=== PATIENT | female | born 1985 | race Caucasian/White ===

== ENCOUNTER 2022-01-14 16:15 | Inpatient (IN) | payer OTHER, SELFPAY ==
[2022-01-14] VITALS (16 sets, daily range): BP systolic 133–157; BP diastolic 67–83; PULSE 88–131; BMI 33.7
--- NOTE | 2022-01-14 16:40 | PC.NURSE ---
Patients BS on her continuous monitor is 149
--- NOTE | 2022-01-14 17:01 | PC.NURSE ---
Jazzmine Salinas gave report to Dr. Ramirez. Orders received for 10 mg PO procardia, increased PO fluids, a dose of celestone and come back in 24 hours for a second dose, and following orders with Dr. Fox.
[2022-01-14] MEDS: BETAMETHASONE SOD PHOS/ACETATE 30 MG/5 ML VIAL 12 MG IM (17:19)
[2022-01-14] MEDS: NIFEdipine 10 MG CAPSULE PO (17:19)
[2022-01-14 17:25] LABS: Appearance Urine Clear (Clear); Bilirubin Urine 1+ (Negative); Blood Urine Negative (Negative); Color Urine Yellow (Yellow); Glucose Urine UA 1+ mg/dL (Negative); Ketones Urine 4+ mg/dL (Negative); Leukocyte Esterase Ur Negative LEU/UL (Negative); Nitrate Urine Negative (Negative); Protein Urine Negative (Negative); Specific Grav Ur >= 1.030 (1.001-1.035); pH Urine 5.5 (5.0-9.0)
[2022-01-14 17:30] LABS: Add Urine Microscopic? YES; Bacteria Urine Trace /hpf; Mucus Urine Moderate /lpf; RBC Urine 0-2 /hpf (0-2); Squamous Epithelial Cell Urine Rare /hpf (Few)
--- NOTE | 2022-01-14 18:07 | PC.NURSE ---
Called Dr. Fox. Orders received of 2L LR bolus, up to 2 doses of terbulatine, cbc, cmp, protein creatine ration, check blood sugars.
[2022-01-14] MEDS: TERBUTALINE SULFATE 1 MG/ML VIAL 0.25 MG SUB-Q (18:32)
--- NOTE | 2022-01-14 18:39 | OBADM ---
This patient, Mari De Leon, admitted to the OB room OB Post 115 for observation. Patient/family oriented to hospital policies and general routines including ID bracelet, bed and alarms, visiting hours, pain management, procedures, bathroom and other care routines, personal items, smoking policy, room service/diet, and visiting hours. Patient/Family are encouraged to report perceived risks to care and to ask questions if they do not understand what they are told or what they should do.
[2022-01-14 18:48] LABS: Creatinine Urine 179.3 mg/dL
[2022-01-14] MEDS: LACTATED RINGERS 1,000 ML 999 ML IV CONT ×2 (19:00→20:13)
[2022-01-14 19:03] LABS: Basophils Percent Auto 0.3 % (0.2-1.2); Eosinophils Absolute Auto 0.2 K/mm3 (0-0.3); Hematocrit 38.9 % (37.0-47.0); Hemoglobin 12.7 g/dL (12.0-15.0); Immature Granulocyte Absolute 0.09 K/mm3 (0.00-0.031); Immature Granulocyte Percent A 0.6 % (0-0.5); Lymphocytes Absolute Auto 3.17 K/mm3 (0.9-3.2); Lymphocytes Percent Auto 20.4 % (18.3-44.2); Mean Corpuscular HGB Conc 32.6 g/dl (32-36); Mean Corpuscular Volume 85.7 fl (80-100); Mean Platelet Volume 10.8 fl (7.4-10.4); Monocytes Absolute Auto 0.6 K/mm3 (0.1-0.6); Monocytes Percent Auto 4.1 % (2.6-8.5); Neutrophils Absolute Auto 11.4 K/mm3 (1.3-6.7); Neutrophils Percent Auto 73.6 % (45.5-73.1); Platelet Count Result 252 k/mm3 (150-375); Red Blood Count 4.54 M/mm3 (4.2-5.4); Red Cell Distribution Width 13.8 % (11.5-14.5); White Blood Count 15.5 K/mm3 (4.5-10.0)
--- NOTE | 2022-01-14 19:08 | PC.NURSE ---
report given to WOOD Marin. Dr. Fox at bedside.
[2022-01-14 19:14] LABS: Alanine Aminotransferase 13 U/L (6-35); Albumin Level 3.3 g/dL (3.5-5.1); Alkaline Phosphatase 141 U/L (38-126); Anion Gap 10 mmol/L (8-16); Aspartate Amino Transferase 20 U/L (14-36); Bilirubin,Total 0.6 mg/dL (0.2-1.3); Blood Urea Nitrogen 6 mg/dL (7-17); Calcium 8.9 mg/dL (8.4-10.2); Carbon Dioxide 21 mmol/L (22-30); Chloride 103 mmol/L (98-107); Estimated CRCL calculation 143 ml/min; Estimated Glomerular Filt Rate > 60; Glucose 156 mg/dL (65-110); Potassium 3.6 mmol/L (3.4-5.0); Sodium 134 mmol/L (137-145); Uric Acid 3.8 mg/dL (2.5-7.5)
[2022-01-14 19:24] LABS: Total Protein Urine Random < 5 mg/dL; Ur Ttl Prot Creatinine Ratio < 0.03 mg/mg (0-0.20)
[2022-01-14 19:58] LABS: Fetal Fibronectin Negative
[2022-01-14] MEDS: NIFEdipine 30 MG TAB.ER.24 PO (21:25)
[2022-01-15 04:54] VITALS: BP 133/65; PULSE 79
--- NOTE | 2022-01-15 07:01 | PC.NURSE ---
Dr. Fox in department, notified of pt stating she feels like the contractions are getting closer together and stronger and just voided and would reevaluate contractions soon. Dr. Fox plans to discharge pt home but wants to discuss with Dr. Ramirez before making a final decision.
[2022-01-15] MEDS: NIFEdipine 30 MG TAB.ER.24 PO (07:12)
--- NOTE | 2022-01-15 07:19 | PC.NURSE ---
Dr. Ramirez at bedside discussing plan of care with pt. Plans to monitor pt for a few more hours and if contractions do not increase in intensity and frequency, plans to discharge home after second dose of Betamethasone, which Dr. Ramirez is ok with giving before the 24 hours.
[2022-01-15 07:22] VITALS: BP 140/72; PULSE 87
[2022-01-15 08:29] LABS: Hemoglobin A1C 6.6 % (<5.7)
[2022-01-15 09:08] LABS: HIV 1/2 Ab P24 Ag Result Negative (Negative)
[2022-01-15] MEDS: RHO(D) IMMUNE GLOBULIN 300 MCG/2 ML SYRINGE IM (09:30)
--- NOTE | 2022-01-15 11:13 | PC.NURSE ---
Dr. Ramirez notified of pt's increase in contraction frequency and intensity. New orders received to give 10mg of Procardia PO now and repeat in 4-6 hours if needed.
[2022-01-15] MEDS: NIFEdipine 10 MG CAPSULE PO ×2 (11:17→15:53)
[2022-01-15 11:19] VITALS: BP 132/64; PULSE 93
--- NOTE | 2022-01-15 13:45 | PC.NURSE ---
1337-Dr. Ramirez phoned in for update. Update given on contraction intensity and frequency. Dr. Ramirez is giving the pt 3 options to choose from: continue on the Procardia 10mg PO Q4-6H, start Magnesium sulfate or be transferred to another facility. [id number]-RN notified pt of the [address] Ramirez. Pt will discuss with spouse and let RN know what she decides.
--- NOTE | 2022-01-15 14:41 | PC.NURSE ---
Pt and spouse decided they wanted to start the Magnesium Sulfate and then if that doesn't seem to help, she would want to be transferred to another facility. Dr. Ramirez notified of pt's decision and new orders received to start 4gm bolus of Magnesium sulfate with a 2gm maintenance dose. Dr. Melara, the [facility] physician extender, in pt's room discussing risks and benefits with pt.
--- NOTE | 2022-01-15 15:08 | PC.NURSE ---
Pt states she changed her mind and wants to be transferred to another facility. Dr. Ramirez notified and states he will call [facility] to initiate the transfer and then call RN back with further instructions.
[2022-01-15 15:32] VITALS: BP 133/65; PULSE 85
--- NOTE | 2022-01-15 15:43 | PC.NURSE ---
Addendum entered by Tasha Garcia RN 01/15/22 16:37: Dr. Ramirez states to wait with starting the Magnesium Sulfate and give the Procardia 10mg when due. Original Note: Dr. Ramirez called and stated [facility] will be calling to get report and then coming to [facility] the pt to transfer to their facility.
--- NOTE | 2022-01-15 16:16 | PM.IMHP ---
H&P: HPI History of Present Illness Date/Time: 01/15/22 16:16 Chief Complaint: contractions Narrative: Mari is a 36yo @ 30.6wks who presented to L&D 01/14/22 with complaints of contractions. She did report poor control of BG yesterday (above 200) and she was found to be dehyrdated w/ 4+ ketones. She reports good movement. No VB or LOF. She reports the contractions come and go; not improving but not significantly worsening. She has been taking procardia and was given a dose of terb (did not like the side effects of terb). She had complications with magnesium with a prior delivery and does not desire that. She has been co-managed by [facility] @ [facility] (works as ER nurse at [employer]). She would like to be transferred to [facility] in the event of continued contractions and PTD. She has been given ANCS x2. Her is complicated by: - Previous c/s x2 - H/o PTD w/ h/o cerclage and cerclage currently in place; also on progesterone - T1DM on insulin pump; not fully controlled - EFW >99%ile with polyhydramnios, SALLY 29cm - Newly diagnosed GHTN; PEC w/u negative on this admission Review of Systems Review of Systems: All systems reviewed & are unremarkable except as noted in HPI and below PMFSH Past Medical History Medical History Abnormal Pap smear of cervix 2008 - HPV Anxiety BRCA gene mutation positive in female Cervical cerclage suture present (09/24/21) done at [facility] Depression Diabetes type 1, controlled insulin pump Nexplanon insertion (08/11/17) Nexplanon removal (08/23/19) Pneumonia Surgical History Surgical History H/O LEEP (~2008) cervical dysplasia History of appendectomy (~1997) History of 12/06/12 primary c/s--premature, pt developed pneumonia cx cerclage @ 16 weeks 06/11/15 rpt c/s--cx cerclage @ 14 weeks History of cervical cerclage 2012 @16 weeks 01/03/15 [place] cerclage @ 14 weeks for cervical incompetence, removal on 06/11/15 History of mastectomy (09/29/17) elective double mastectomy, patient has BRCA gene Hx of breast implants, bilateral (06/17/18) due to double mastectomy Family History Family History Other Diabetes mellitus maternal uncle Breast cancer maternal uncle Mother Breast cancer Grandparent Malignant tumor of ovary maternal grandmother Father Malignant tumor of urinary bladder Social History Social History Smoking status: Never smoker Alcohol intake: never Substance use: never Substance use type: does not use Additional living arrangements comments: Additional occupation/education comments: Nurse Gender identity (if verbalized by the patient): Female Sexual Orientation (if Verbalized by the Patient): Straight or Heterosexual Meds Home Medications and Allergies Home Medications Medication Instructions Recorded Confirmed Type aspirin 81 mg tablet,delayed 81 mg PO DAILY 09/25/21 01/14/22 History release insulin aspart U-100 100 unit/mL 1 sliding scale dose subcut 09/25/21 01/14/22 History subcutaneous solution (Novolog USEASDIRECTD U-100 Insulin aspart) vitamins-iron fumarate 65 1 tablet PO DAILY 09/25/21 01/14/22 History mg iron-folic acid 1 mg tablet escitalopram oxalate 20 mg tablet 20 mg PO DAILY 11/24/21 01/14/22 History (Lexapro) nifedipine 30 mg tablet,extended 30 mg PO DAILY #30 tabs 01/12/22 01/14/22 Rx release 24 hr (Procardia XL) progesterone micronized 200 mg 200 mg PO QHS 30 days #30 caps 01/12/22 01/14/22 Rx capsule (Prometrium) zolpidem 12.5 mg tablet,extended 12.5 mg PO QHS #30 tabs 01/12/22 01/14/22 Rx release,multiphase (Ambien CR) Allergies Allergy/AdvReac Type Severity Reaction Status Date / Time cefaclor Allergy Unknown Hive
--- NOTE | 2022-01-15 16:26 | WPDHPUPDATE1 ---
History and Physical Update Update Date/Time: 01/15/22 16:26 History and Physical has been reviewed, including an updated exam of the patient. There are NO changes in the patient's condition. Risks, benefits, and alternatives have been discussed and questions answered. Patient agrees to proceed with procedure.
[2022-01-15] MEDS: BETAMETHASONE SOD PHOS/ACETATE 30 MG/5 ML VIAL 12 MG IM (17:07)
--- NOTE | 2022-01-15 17:29 | PC.NURSE ---
[facility] unit.
--- NOTE | 2022-01-20 09:57 | PM.OBTRLD ---
OB - Triage/Final Diagnosis Visit Information Reason for evaluation: other ( labor) Comments/Additional reasons for admission: I have assessed the risk for this patient, Mari De Leon, and determined that she would benefit from observation care. Evaluation Laboratory results: Laboratory Tests 01/14/22 01/14/22 01/14/22 17:08 17:14 18:53 WBC 15.5 H RBC 4.54 Hgb 12.7 Hct 38.9 MCV 85.7 MCH 28.0 MCHC 32.6 RDW 13.8 Plt Count 252 MPV 10.8 H Immature Gran % (Auto) 0.6 H Neut % (Auto) 73.6 H Lymph % (Auto) 20.4 [place] % (Auto) 4.1 Eos % (Auto) 1.0 Baso % (Auto) 0.3 Lymph # (Auto) 3.17 [place] # (Auto) 0.6 Eos # (Auto) 0.2 Baso # (Auto) 0.0 Abs Immat Gran (auto) 0.09 H Absolute Neuts (auto) 11.4 H Absolute Nucleated RBC 0.0 Nucleated RBC % 0.0 Sodium Potassium Chloride Carbon Dioxide Anion Gap BUN Creatinine Estim Creat Clear Calc Estimated GFR Glucose Hemoglobin A1c Uric Acid Calcium Total Bilirubin AST ALT Alkaline Phosphatase Total Protein Albumin Urine Color Yellow Urine Appearance Clear Urine pH 5.5 Ur Specific [place] >= 1.030 Urine Protein Negative Urine Glucose (UA) 1+ H Urine Ketones 4+ H Ur Blood (Man) Negative Urine Nitrate Negative Urine Bilirubin 1+ H Urine Urobilinogen 2.0 H Leukocyte Esterase Rfl Negative Urine RBC 0-2 Urine WBC 4-6 H Ur Squamous Epith Cells Rare Urine Bacteria Trace Urine Mucus Moderate H U Random Total Protein < 5 Urine Creatinine 179.3 Protein/Creat Ratio 2 < 0.03 HIV 1&2 Ab/P24 Ag 4thGn Fibronectin Blood Type Antibody Screen Screen Baby's Blood Type Baby's JAROD Doses of RhIg Required 01/14/22 01/14/22 01/15/22 18:53 19:15 08:02 WBC RBC Hgb Hct MCV MCH MCHC RDW Plt Count MPV Immature Gran % (Auto) Neut % (Auto) Lymph % (Auto) [place] % (Auto) Eos % (Auto) Baso % (Auto) Lymph # (Auto) [place] # (Auto) Eos # (Auto) Baso # (Auto) Abs Immat Gran (auto) Absolute Neuts (auto) Absolute Nucleated RBC Nucleated RBC % Sodium 134 L Potassium 3.6 Chloride 103 Carbon Dioxide 21 L Anion Gap 10 BUN 6 L Creatinine 0.50 L Estim Creat Clear Calc 143 Estimated GFR > 60 Glucose 156 H Hemoglobin A1c 6.6 H Uric Acid 3.8 Calcium 8.9 Total Bilirubin 0.6 AST 20 ALT 13 Alkaline Phosphatase 141 H Total Protein 7.0 Albumin 3.3 L Urine Color Urine Appearance Urine pH Ur Specific [place] Urine Protein Urine Glucose (UA) Urine Ketones Ur Blood (Man) Urine Nitrate Urine Bilirubin Urine Urobilinogen Leukocyte Esterase Rfl Urine RBC Urine WBC Ur Squamous Epith Cells Urine Bacteria Urine Mucus U Random Total Protein Urine Creatinine Protein/Creat Ratio 2 HIV 1&2 Ab/P24 Ag 4thGn Fibronectin Negative Blood Type Antibody Screen Screen Baby's Blood Type Baby's JAROD Doses of RhIg Required 01/15/22 01/15/22 08:02 08:02 WBC RBC Hgb Hct MCV MCH MCHC RDW Plt Count MPV Immature Gran % (Auto) Neut % (Auto) Lymph % (Auto) [place] % (Auto) Eos % (Auto) Baso % (Auto) Lymph # (Auto) [place] # (Auto) Eos # (Auto) Baso # (Auto) Abs Immat Gran (auto) Absolute Neuts (auto) Absolute Nucleated RBC Nucleated RBC % Sodium Potassium Chloride Carbon Dioxide Anion Gap BUN Creatinine Estim Creat Clear Calc Estimated GFR Glucose Hemoglobin A1c Uric Acid Calcium Total Bilirubin AST ALT Alkaline Phosphatase Total Protein Albumin Urine Color Urine Appearance Urine pH Ur Specific [place] Urine Protein Urine Glucose (
== END 2022-01-15 17:55 | disposition short-term general hospital (02) | DRG 832 ==
LOC: ANHLDR 16:21 → ANHOBPP 16:24
PROVIDERS: Obstetrics & Gynecology; Admitting Provider Obstetrics & Gynecology; Visit Provider Obstetrics & Gynecology
DX: O24.013 Pre-existing type 1 diabetes mellitus, in pregnancy, third trimester (principal); O47.03 False labor before 37 completed weeks of gestation, third trimester; Z3A.30 30 weeks gestation of pregnancy; E86.0 Dehydration; Z79.4 Long term (current) use of insulin; O13.3 Gestational [pregnancy-induced] hypertension without significant proteinuria, third trimester; O40.3XX0 Polyhydramnios, third trimester, not applicable or unspecified; O99.343 Other mental disorders complicating pregnancy, third trimester; F41.9 Anxiety disorder, unspecified; F32.A Depression, unspecified
CPT/HCPCS: 36415; 80053; 81001; 82570; 82731; 83036; 84156; 84550; 85025; 85461; 86703; 90384; 96360; 96361; 96372; A9270; G0378; G0379; G0432; J0702; J2790; J3105; J7120

== ENCOUNTER 2024-08-01 09:36 | Outpatient (CLI) | payer OTHER, SELFPAY ==
--- NOTE | ~2024-08-01 | MR_ITS ---
MR breast BI wo/w con 08/01/2024 13:05 CDT INDICATION: High risk for breast cancer. TECHNIQUE: MRI of the breasts perform using standard protocol pre-and post IV contrast with the follo wing sequences: Axial T2 STIR, axial T1, axial vibrant T1 with fat suppression precontrast and multip hasic postcontrast with 11 cc ProHance intravenously. COMPARISON: No prior studies for comparison. FINDINGS: There are no abnormalities on the precontrast sequences. There is minimal background parenc hymal enhancement. No enhancing lesions following contrast administration. No areas of enhancement meeting threshold criteria on CAD analysis. No evidence of signal abnormalities in the axillary or i nternal mammary node distributions. LEFT BREAST: No signal abnormalities on precontrast sequences. There is minimal background parenchym al enhancement. No enhancing lesions following contrast administration. No areas of enhancement me eting threshold criteria on CAD analysis. No evidence of signal abnormalities in the axillary or in ternal mammary node distributions.] IMPRESSION: 1: Right breast: Negative. No evidence of malignancy. BI-RADS category 1. Recommend annual mammo graphy follow-up. 2: Left breast: Negative. No evidence of malignancy. BI-RADS category 1. Recommend annual mammogr aphy follow-up. Follow-up MRI may be useful for supplementing mammographic evaluation as clinically indicated. Reviewed, dictated and finalized at location B. IMPRESSION: 1: Right breast: Negative. No evidence of malignancy. BI-RADS category 1. Recommend annual mammography follow-up. 2: Left breast: Negative. No evidence of malignancy. BI-RADS category 1. Re commend annual mammography follow-up. Follow-up MRI may be useful for supplementing mammographic evaluation as clinic ally indicated.
--- OUTSIDE RECORDS SUMMARY | 2024-08-01 10:13 | XMS_ITS | Encounter Summary ---
Author Organization [facility] Address [address] [place] [address] Phone Care Team Providers Care Gravel Machine Operator Name Role Phone No, Physician Primary Care Provider [phone] Encounter Details Date Type Department Care Team (Late st Contact Info) Description 10/04/2020 Orders Only [facility] Scanning, Provider Social History Tobacco Use Types Packs/Day Years Used Date Smoking Tobacco: Never Smokeless Tobacco: Never Alcohol Use Standard Drinks/Week Comments Yes 2 (1 standard drink = 0.6 oz pur e alcohol) Comments No Sex and Gender Information Value Date Recorded Sex Assigned at Not on file 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
--- OUTSIDE RECORDS SUMMARY | 2024-08-01 10:13 | XMS_ITS | Clinical Summary ---
Author Organization [facility] Address [address] [place] [address] Care Team Providers Care Control Systems Designer Name Role Phone Unavailable Primary Care Provider Unavailabl e Source Comments [facility],non-owned Affiliates and Associated Physician Practices is amultiple site organization consisting of ambulatory clinics and hospital sitesin [place], [place], [place] and [place]. This disclosure is being madepursuant to the Care Everywhere program and may not contain all information available regarding this patient. Last updated 18.[facility] Allergies Active Allergy Reactions Criticality Noted Date Comments Cefaclor Urticaria 12/11/2014 Levofloxacin Urticaria,Swelling 12/11/2014 Penicillins Urticaria 12/11/2014 Medications * Be aware that medications may not be up to date on this document. Alwaysverify current medications with the patient. Vit-Fe Fumarate-FA ( VITAMIN) 28-0.8 MG tablet Take 1 Tab by mouth once daily Active zolpidem (AMBIEN) 5 MG tablet Take 5 mg by mouth nightly as needed for Insomnia Active insulin aspart (NOVOLOG) for insulin pump Inject subcutaneously as directed Active hydroxyprogest erone caproate (BRIANA) 250 MG/ML injection Inject 250 mg into muscle every 7 days Active NIFEdipine (PROCARDIA) 10 MG capsule Take 20 mg by mouth every 6 hours as needed Active Rho D Immune Globulin (RHOGAM, HUMAN, IM) Active benzonatate (TESSALON) 100 MG capsule Take 100 mg by mouth 3 times daily as needed for Cough Active Active Problems Patient Care Coordination No te Formatting of this note migh t be different from the original. 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 Encounter for procreative genetic counseling 04/2021 Cervical insufficiency during , antepar sebastian 06/11/2015 Cervical cerclage suture present in third trimes ter 06/11/2015 H/O LEEP 06/11/2015 screening for feta l growth retardation using ultrasonics 04/30/2015 Overview (01/17/2022): IMO 2021 Update Diabetes mellitus affecting 03/12/2015 History of delivery, currently in second trimester 03/12/2015 Previous delivery, antepartum condition or complication 12/27/2014 Supervision of other high-risk 015 Overview (02/24/2015): Diabetes mellitus of mother, complicating , childbirth, or the puerperium, unspecified as to episode of care(648.00) 11/30/2014 History of delivery, currently in first trimester 11/30/2014 Incompetence of cervix 11/30/2014 Resolved Problems Problem Noted Date Diagnosed Date Resolved Date Cervical cerclage suture pre sent in second trimester 11/30/2014 11/30/2014 Family History Medical History Relation Name Comments Cancer Maternal Aunt breast Diabetes Maternal Uncle Cancer Mother breast Twins Sister Relation Name Status Comments Maternal Aunt Maternal Uncle Mother Sister Social History Tobacco Use Types Packs/Day Years Used Date Smoking Tobacco: Never Alcohol Use Standard Drinks/Week Comments No 0 (1 standard drink = 0.6 oz pure alcohol) occasionally prior to Comments No Sex and Gender Information Value Date Recorded Sex Assigned at Not on file Legal Sex Female 11:39 AM CDT Gender Identity Not on file Sexual Orientation Not on file Last Filed Vital Signs Vital Sign Reading Time Taken Comments Blood Pressure 131/84 06/14/2015 7:36 AM BOTTOM BUFFER Pulse 79 06/14/2015 7:36 AM BOTTOM BUFFER Temperature - - Respiratory Rate - - Oxygen Saturation - - Inhaled Oxygen Concentration - - Weight 78.5 kg (173 lb) 05/07/2015 8:21 AM BOTTOM BUFFER Height 162.6 cm (5' 4 ) 12/11/2014 2:24 PM CDT Body Mass Index 29.7 12/11/2014 2:24 PM CDT Plan of Treatment Health Maintenance Due Date Last Done Comments HIV SCREENING 07/25/2002 HEPATITIS C SCREENING 07/21/2005 DTAP/TDAP/TD VACCINES (1 - Tdap) 07/25/2006 HEPATITIS B VACCINE (1 of 3 - 19+ 3-dose series) 07/25/2006 COVID-19 VACCINE (3 - 2023-2 5 season) 2023 11/27/2020, 11/06/2020 DEPRESSION SCREENING 04/19/2024 INFLUENZA VACCINE (Season Ended) 2024 03/27/2021, 02/01/2019, 02/02/2018 ZOSTER VACCINE (1 of 2) 07/25/2037 HIB VACCINE Aged Out No longer eligi ble based on patient's age to complete this topic HPV VACCINE Aged Out No longer eligi ble based on patient's age to complete this topic MENINGOCOCCAL (Group B) VACCINE SHARED DECISION-MAKING Aged Out No longer eligible based on patient's age to complete this topic MENINGOCOCCAL GROUPS A/C/Y/W VACCINE Aged Out No longer eligible b ased on patient's age to complete this topic PNEUMOCOCCAL VACCINE Aged Out No long er eligible based on patient's age to complete this topic
--- OUTSIDE RECORDS SUMMARY | 2024-08-01 10:13 | XMS_ITS | Clinical Summary ---
Author Organization [facility] [email or web address] [place] Address [address] [place] [place] [address] [place] [address] Care Team Providers Care Deputy Manager Name Role Phone Marita Pierre MD Primary Care Provider Allergies Active Allergy Reactions Criticality Noted Date Comments Cefaclor Hives High 12/07/2014 Levofloxacin Swelling,Rash Medium 08/15/2012 Other reaction(s): Urticaria swelling Penicillins Hives,Swelling High 01/04/2012 Medications Blood-Glucose Meter,Continuou s One improvement analyst 10/06/19 19 Active blood sugar diagnostic Strip USE TO TEST BLOOD SUGAR 8-10 TIMES DAILY 06/01/19 19 Active Blood-Glucose Sensor (Dexcom G6 Sensor) DeviceIndicatio ns:Type 1 diabetes mellitus without complication (CMS/HCC) Change sensor every 10 days. 3 sensors = 1 month supply 9 Each 3 08/20/19 22 Active Blood-Glucose Transmitter (Dexcom G6 Transmitter) DeviceIndicatio ns:Type 1 diabetes mellitus without complication (CMS/HCC) Change transmitter every 90 days 1 Each 3 08/20/19 22 Active insulin aspart U-100 (NovoLOG U-100 Insulin aspart) 100 unit/mL vialIndications :Type 1 diabetes mellitus with other specified complication (CMS/HCC),Type 1 diabetes mellitus complicating , antepartum Take up to 200U per day via SQ insulin pump as directed 60 mL 6 11/15/19 22 Active insulin pump cart,automated, BT (Omnipod 5 G6 Pods, Gen 5,) CartridgeIndica tions:Type 1 diabetes mellitus with other specified complication (CMS/HCC),Type 1 diabetes mellitus complicating , antepartum Change pod q24 hours 30 Each 11 11/15/19 22 Active gabapentin (NEURONTIN) 300 mg capsule Take 300 mg by mouth nightly as needed for Pain. Active zolpidem (Ambien CR) 12.5 mg Controlled Release tablet Take 12.5 mg by mouth nightly as needed for Insomnia. Active tirzepatide (Mounjaro) 15 mg/0.5 mL Pen Injector Do not take your next shot until you follow-up with your PCP. It is recommended that you resolve your constipation and GI symptoms prior to restarting. 1 mL 03/16/20 24 Active Additional Information Patient taking differently: 15 mg subCUT EVERY 7 DAYS, mondays, Reported on 07/17/2024 polyethylene glycol (MIRALAX) 17 gram Powder in Packet Take 1 Packet (17 Grams) by mouth 2 times daily. 30 Each 03/16/20 24 Active sennosides-docu sate sodium (SENNA-S) 8.6-50 mg tablet Take 1 Tablet by mouth 2 times daily. 30 Tablet 03/16/20 24 Active ketoconazole (NIZORAL) 2 % Shampoo 03/15/20 24 Active insulin degludec (Tresiba FlexTouch U-100) 100 unit/mL pen syringe Inject 36 units in case of pump failure 09/21/19 24 Active ondansetron (ZOFRAN ODT) 4 mg Tablet, Rapid Dissolve TAKE 1 TABLET BY MOUTH EVERY 6 HOURS FOR 2 DAYS NEEDED FOR NAUSEA 01/31/20 24 Active predniSONE (DELTASONE) 20 mg tablet Take 1 Tablet by mouth daily. 01/31/20 24 Active Insulin Syringe-Needle U-100 1 mL 31 gauge x 5/16 Syringe Use to inject insulin in case of pump failure 09/21/19 24 Active pen needle, diabetic (NovoFine Plus) 32 gauge x 1/6 Needle Use in case of pump failure 09/21/19 24 Active glucagon (Gvoke HypoPen 1-Pack) 1 mg/0.2 mL Auto-Injector Use one Gvoke pen as needed for hypoglycemia 09/21/19 24 Active Omnipod 5 G6-G7 Pods, Gen 5, Cartridge Change pod every 2 days 04/25/19 25 Active HYDROcodone-lara taminophen (NORCO) 5-325 mg tabletIndicatio ns:Right shoulder pain, unspecified chronicity Take 1-2 Tablets by mouth every 4 hours as needed for Pain, Moderate. Max Daily Amount: 12 Tablets 30 Tablet 05/10/19 25 Active cyclobenzaprine (FLEXERIL) 10 mg tabletIndicatio ns:Right shoulder pain, unspecified chronicity Take 1 Tablet (10 mg) by mouth 3 times daily as needed for Spasm. 30 Tablet 1 07/01/19 25 Active oxyCODONE (ROXICODONE) 5 mg tabletIndicatio ns:Adhesive capsulitis of right shoulder Take 1 Tablet (5 mg) by mouth every 4 hours as needed for Pain. Max Daily Amount: 30 mg 25 Tablet 5 10:07 AM CDT 07/27/19 25 Active docusate sodium (Dulcolax Stool Softener, dss,) 100 mg capsule Take 1 Capsule (100 mg) by mouth 2 times daily. 30 Capsule 5 10:07 AM CDT 07/27/19 25 Active prochlorperazin e maleate (COMPAZINE) 10 mg tablet Take 1 Tablet (10 mg) by mouth every 6 hours as needed for Nausea/Vomiting . 30 Tablet 5 10:07 AM CDT 07/27/19 25 Active prochlorperazin e maleate (COMPAZINE) 10 mg tablet Take 1 Tablet (10 mg) by mouth every 6 hours as needed for Nausea/Emesis. 30 Tablet 03/16/20 24 2024 Discontinued ketorolac tromethamine (TORADOL) 10 mg tablet Take 1 Tablet (10 mg) by mouth every 6 hours as needed for Pain. 20 Tablet 5 10:07 AM CDT 07/27/19 25 2024 Active Problems Problem Noted Date Diagnosed Date Adhesive capsulitis of right shoulder 07/11/2024 Lymphadenopathy 05/09/2024 Overview (05/09/2024): Postoperative rotator cuff repair MRI 05/05/2024 Abnormal increased number of lymph nodes in the right supraclavicular and axillary regions. Consider reactive or neoplastic causes. 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 Generalized anxiety disorder 01/01/2023 Chronic insomnia 01/01/2023 Type 1 diabetes mellitus without complication Resolved Problems Problem Noted Date Diagnosed Date Resolved Date Pre-eclampsia, severe, delivered 01/19/2022 01/01/2023 Encounter for blood typing 01/19/2022 0 01/01/2023 MFM Tx/ OBH: rLTCS, Pre-e w/ SF, T1DM, boy (nicu) 01/16/2022 01/01/2023 Gestational hypertension, third trimester 01/16/2022 01/01/2023 Encounters Date Type Department Care Team Description 2024 8:00 AM CDT - 2024 8:55 AM CDT Surgery Replaced By [facility] Operating Room [address] [place] [address] Jose Luis Arevalo MD Right shoulder arthroscopic capsular release and hardware removal 2024 7:34 AM CDT Anesthesia Event Replaced By [facility] Operating Room [address] [place] [address] Charlene Castro MD Aridge, Della Louise, NP 2024 6:05 AM CDT - 2024 10:40 AM CDT Hospital Encounter Replaced By [facility] Pre Procedure Phase II [address] [place] [address] Jose Luis Arevalo MD Adhesive capsulitis of right shoulder Discharge Disposition: Home or Self Care 07/24/2024 Orders Only [facility] - [facility] [address] [place] [phone] Yary Ramírez PA-C Adhesive capsulitis of right shoulder (Primary Dx) 07/21/2024 8:35 AM CDT - 07/21/2024 11:59 PM CDT Hospital Encounter Replaced By [facility] Pre Surgical Assessment [address] [place] [address] Jose Luis Arevalo MD Discharge Disposition: Home or Self Care 07/21/2024 Results Follow-Up [facility] at Work [employer] [address] [place] [address] Marita Pierre MD CBC WITH DIFFERENTIAL 07/18/2024 External Device Data STL ABSTRACTION Provider, Abstract 07/18/2024 External Device Data STL ABSTRACTION Provider, Abstract 07/18/2024 External Device Data STL ABSTRACTION Provider, Abstract 07/14/2024 Prep for Surgery [facility] [address] [place] [address] Jose Luis Arevalo MD Adhesive capsulitis of right shoulder (Primary Dx) 07/11/2024 1:00 PM CDT Work Comp [facility] Orthopedic Surgery at the [facility] [address] [place] [address] Jose Luis Arevalo MD Adhesive capsulitis of right shoulder (Primary Dx) 07/11/2024 Chart Note [facility] Surgery at the [facility] [address] [place] [phone] Jose Luis Arevalo MD 06/30/2024 Orders Only [facility] - [facility] [address] [place] [address] Dnoaldo Moreira PA-C Right shoulder pain, unspecified chronicity 06/27/2024 10:30 AM CDT - 06/27/2024 11:59 PM CDT Hospital Encounter [facility] [address] [place] [address] Jose Luis Arevalo MD Blow, Kellie L, DPT Traumatic incomplete tear of right rotator cuff, initial encounter Discharge Disposition: Home or Self Care 06/27/2024 External Device Data STL ABSTRACTION Provider, Abstract 06/27/2024 External Device Data STL ABSTRACTION Provider, Abstract 06/20/2024 10:28 AM LOCOMOTIVE CRANE OPERATOR HELPER - 06/20/2024 11:59 PM LOCOMOTIVE CRANE OPERATOR HELPER Hospital Encounter [facility] [place] [address] [place] [address] Jose Luis Arevalo MD Blow, Kellie L, DPT Traumatic incomplete tear of right rotator cuff, initial encounter Discharge Disposition: Home or Self Care 06/13/2024 10:45 AM LOCOMOTIVE CRANE OPERATOR HELPER Work Comp [facility] Surgery at the [facility] [address] [place] [phone] Jose Luis Arevalo MD S/P right rotator cuff repair (Primary Dx) 06/12/2024 8:30 AM LOCOMOTIVE CRANE OPERATOR HELPER - 06/12/2024 11:59 PM LOCOMOTIVE CRANE OPERATOR HELPER Hospital Encounter [facility] [place] [address] [place] [address] Jose Luis Arevalo MD Discharge Disposition: Home or Self Care 06/12/2024 8:30 AM LOCOMOTIVE CRANE OPERATOR HELPER - 06/12/2024 11:59 PM LOCOMOTIVE CRANE OPERATOR HELPER Hospital Encounter [facility] [place] [address] [place] [address] Jose Luis Arevalo MD Blow, Kellie L, DPT Traumatic incomplete tear of right rotator cuff, initial encounter Discharge Disposition: Home or Self Care 06/09/2024 10:00 AM LOCOMOTIVE CRANE OPERATOR HELPER - 06/09/2024 11:59 PM LOCOMOTIVE CRANE OPERATOR HELPER Hospital [facility] [place] [address] [place] [address] Jose Luis Arevalo MD Blow, Kellie L, DPT Traumatic incomplete tear of right rotator cuff, initial encounter Discharge Disposition: Home or Self Care 06/07/2024 Orders Only [facility] Surgery at the [facility] [address] [place] [phone] Donaldo Moreira PA-C S/P right rotator cuff repair (Primary Dx) 06/06/2024 10:00 AM LOCOMOTIVE CRANE OPERATOR HELPER - 06/06/2024 11:59 PM LOCOMOTIVE CRANE OPERATOR HELPER Hospital Encounter [facility] [place] [address] [place] [address] Jose Luis Arevalo MD Blow, Kellie L, DPT Traumatic incomplete tear of right rotator cuff, initial encounter Discharge Disposition: Home or Self Care 06/02/2024 10:30 AM LOCOMOTIVE CRANE OPERATOR HELPER - 06/02/2024 11:59 PM LOCOMOTIVE CRANE OPERATOR HELPER Hospital Encounter [facility] [place] [address] [place] [phone] Jose Luis Arevalo MD Blow, Kellie L, DPT Traumatic incomplete tear of right rotator cuff, initial encounter Discharge Disposition: Home or Self Care 05/30/2024 External Device Data STL ABSTRACTION Provider, Abstract 05/26/2024 10:29 AM LOCOMOTIVE CRANE OPERATOR HELPER - 05/26/2024 11:59 PM LOCOMOTIVE CRANE OPERATOR HELPER Hospital Encounter [facility] [place] [address] [place] [phone] Jose Luis Arevalo MD Blow, Kellie L, DPT Traumatic incomplete tear of right rotator cuff, initial encounter Discharge Disposition: Home or Self Care 05/23/2024 11:29 AM LOCOMOTIVE CRANE OPERATOR HELPER - 05/23/2024 11:59 PM LOCOMOTIVE CRANE OPERATOR HELPER Hospital Encounter [facility] [place] [address] [place] [phone] Jose Luis Arevalo MD Blow, Kellie L, DPT Traumatic incomplete tear of right rotator cuff, initial encounter Discharge Disposition: Home or Self Care 05/19/2024 Results Follow-Up [facility] at Work [facility] [employer] [place] [address] [place] [phone] Marita Pierre MD CBC WITH DIFFERENTIAL, C-REACTIVE PROTEIN 05/17/2024 1:20 PM LOCOMOTIVE CRANE OPERATOR HELPER Procedure visit [facility] at Work [employer] [place] [address] [place] [phone] Right shoulder pain, unspecified chronicity; Lymphadenopathy 05/16/2024 10:25 AM LOCOMOTIVE CRANE OPERATOR HELPER - 05/16/2024 11:59 PM LOCOMOTIVE CRANE OPERATOR HELPER Hospital Encounter [facility] [place] [address] [place] [phone] Jose Luis Arevalo MD Blow, Kellie L, DPT Traumatic incomplete tear of right rotator cuff, initial encounter Discharge Disposition: Home or Self Care 05/16/2024 External Device Data STL ABSTRACTION Provider, Abstract 05/10/2024 2:30 PM LOCOMOTIVE CRANE OPERATOR HELPER Office Visit [facility] at Work [employer] [address] [place] [address] Marita Pierre MD Right shoulder pain, unspecified chronicity (Primary Dx); Lymphadenopathy 05/10/2024 External Device Data STL ABSTRACTION Provider, Abstract 05/10/2024 External Device Data STL ABSTRACTION Provider, Abstract 05/09/2024 10:45 AM LOCOMOTIVE CRANE OPERATOR HELPER Work Comp [facility] Surgery at the [facility] [address] [place] [phone] Jose Luis Arevalo MD S/P right rotator cuff repair (Primary Dx) 05/09/2024 External Device Data STL ABSTRACTION Provider, Abstract 05/08/2024 10:27 AM LOCOMOTIVE CRANE OPERATOR HELPER - 05/08/2024 11:59 PM LOCOMOTIVE CRANE OPERATOR HELPER Hospital Encounter [facility] Services [facility] [address] [facility] [address] [place] [address] Jose Luis Arevalo MD Blow, Kellie L, DPT Traumatic incomplete tear of right rotator cuff, initial encounter Discharge Disposition: Home or Self Care 05/05/2024 6:43 AM LOCOMOTIVE CRANE OPERATOR HELPER - 05/05/2024 11:59 PM LOCOMOTIVE CRANE OPERATOR HELPER Hospital Encounter [facility] MRI [address] [place] [address] Jose Luis Arevalo MD Discharge Disposition: Home or Self Care from Last 3 Months Immunizations Immunization Administration Dates Next Due (ADACEL/BOOSTRIX)(10 YR UP) TDAP VACCINE, 0.5ML, IM 04/20/2021 (INFANRIX)(6 WKS-6 YRS) DIPT HERIA, TETANUS TOXOIDS, AND ACCELLULAR PERTUSSIS VACCINE (DTAP), 0.5 ML IM 12/11/2009 (M-M-R II/PRIORIX)(12 MO UP) MEASLES, MUMPS AND RUBELLA VIRUS VACCINE, 0.5 ML IM/SUBCUT 05/02/2001,04/05/2001 (VARIVAX)(12 MOS UP)VARICELL A VIRUS VACCINE (PF) 0.5 ML, SUB CUT 04/28/2007,03/21/2002 Hepatitis B Vaccine 02/25/2011 INFLUENZA VACCINE QUADRIVALE NT 6 MOS UP CELL DERIVED PF IM 02/03/2018 INFLUENZA VACCINE QUADRIVALE NT 6 MOS UP PF IM 02/01/2019 Influenza Seasonal Unspecifi ed Formulation IM 01/01/2024,02/15/2022,03/27/2021 Family History Medical History Relation Name Comments Cancer Father prostate Healthy Father Ovarian Cancer Maternal Grandmother Breast Cancer Mother Healthy Sister Thyroid Disease Sister Relation Name Status Comments Daughter Alive Father Alive Maternal Grandmother Mother Sister Alive Son 1 Alive Son 2 Alive Social History Tobacco Use Types Packs/Day Years Used Date Smoking Tobacco: Never Passive Smoke Exposure: Never Smokeless Tobacco: Never Tobacco Cessation:Counseling Given: Yes Alcohol Use Standard Drinks/Week Comments Yes 6 (1 standard drink = 0.6 oz pur e alcohol) 3 days a week, 1-2 drinks Feeling Safe Answer Date Recorded Are you in a relationship wi th someone who hurts you emotionally and/or physically? No 2024 Food Insecurity Answer Date Recorded Social/Environmental Concerns No concerns Transportation Needs Answer Date Record ed Social/Environmental Concerns No concerns Housing Stability Answer Date Recorded Social/Environmental Concerns No concerns Utility Needs Answer Date Recorded Social/Environmental Concerns No concerns Comments No Sex and Gender Information Value Date Recorded Sex Assigned at Not on file Legal Sex Female 11:17 AM LOCOMOTIVE CRANE OPERATOR HELPER Gender Identity Not on file Sexual Orientation Not on file Last Filed Vital Signs Vital Sign Reading Time Taken Comments Blood Pressure 99/58 2024 10:28 AM CDT Pulse 84 2024 10:28 AM CDT Temperature 36.2 C (97.2 F) 2024 9:38 AM CDT Respiratory Rate 13 2024 8:52 AM CDT Oxygen Saturation 100% 2024 10:28 AM CDT Inhaled Oxygen Concentration - - Weight 54.9 kg (121 lb) 2024 6:17 AM CDT Height 162.6 cm (5' 4 ) 07/21/2024 8:46 AM CDT Body Mass Index 20.77 07/21/2024 8:46 AM CDT Plan of Treatment Upcoming Encounters Date Type Department Care Team (Late st Contact Info) Description 08/08/2024 11:15 AM CDT Work Comp [facility] Orth[facility] Surgery at the [facility] [address] [place] [address] [place] [address] [place] [address] Health Maintenance Due Date Last Done Comments DIABETES ANNUAL FOOT EXAM 07/25/2005 HEPATITIS B VACCINES (1 of 3 - 19+ 3-dose series) 07/25/2006 02/25/2011 HPV/Cotest (21-29) 07/25/2008 CERVICAL CANCER SCREENING 07/25/2017 HPV/Cotest (30-65) 07/25/2017 PAP SMEAR 07/25/2017 DIABETES ANNUAL RETINAL EXAM 10/01/2022 10/01/2021 DIABETES MICROALBUMIN ANNUAL SCREEN 01/02/2024 01/01/2023, 01/22/2020 LDL CHOLESTEROL ANNUAL 01/02/2024 , 10/04/2020, 01/22/2020 Preventative Visit- Commercial 04/19/2024 01/01/2023 DIABETES HBA1C Q 6 MONTHS 06/25/20242023, 09/21/2023, 01/01/2023, Additional history exists DTAP/TDAP/TD VACCINES (5 - Td or Tdap) 02/04/2033 02/04/2023, 04/22/2021, 04/20/2021, Additional history exists INFLUENZA VACCINE Completed 01/01/2024, , 02/15/2022, Additional history exists HPV VACCINES Aged Out No longer eligi ble based on patient's age to complete this topic Medical Devices Implanted Type Area Inspector Screen Printing Device Identifier Shelf Expiration Date Model / Serial / Lot [employer]ona Tendon 2504-1 - [id number] Implanted:Qty: 1 on 03/08/2024 by Jose Luis Arevalo MD at [facility] Corona Right: Shoulder BAZZI NEPHEW ORTHO 12/13/2026 2504-1 / / [id number] [employer]ona Arthro Bone Dlvry Sys Adv 4403 - [id number] Implanted:Qty: 1 on 03/08/2024 by Jose Luis Arevalo MD at [facility] [employer] Right: Shoulder BAZZI NEPHEW ORTHO 09/08/2026 4403 / / [id number] Tendon Achilles Tissue Regeneten Lg Bovine 4566 - [id number] Implanted:Qty: 1 on 03/08/2024 by Jose Luis Arevalo MD at [facility] Tendon Right: Shoulder BAZZI NEPHEW ORTHO 06/23/2026 4566 / / [id number] Description:All S&N shoulder components, Requisition, [id number]. Procedures Procedure Name Priority Date/Time Associated Diagnosis Comments PROCEDURE PHOTOGRAPHS 07/27/2024 1:32 PM CDT POC GLUCOSE Routine 2024 8:50 AM CDT POC GLUCOSE Routine 2024 8:09 AM CDT WI SURGICAL ARTHROSCOPY SHOULDER XTNSV DBRDMT 3+ 2024 8:00 AM CDT Adhesive capsulitis of right shoulder Special Needs ANES GENERAL WITH INTERSCALENE BLOCK; DR BEEBE 30MIN; BEACH CHAIR WITH SPYDER; 90 DEGREE WAND; ULTRASLING III; ICE MACHINE; SHOULDER ARTHROSCOPY; JEFFERSON BAG; LEONARDA MOREIRA AND YARY RAMÍREZ TO ASSIST WI ANESTHESIA BLOCK PB PLACEHOLDER CHARGE Routine 2024 7:45 AM CDT POC GLUCOSE Routine 2024 6:37 AM CDT POC , URINE Routine 2024 6:20 AM CDT CBC WITH DIFFERENTIAL Routine 07/21/2024 9:22 AM CDT Leukocytosis, unspecified type BASIC METABOLIC PANEL Routine 07/21/2024 9:22 AM CDT Type 1 diabetes mellitus without complication (CMS/HCC) C-REACTIVE PROTEIN Routine 05/17/2024 1: 13 PM LOCOMOTIVE CRANE OPERATOR HELPER Right shoulder pain, unspecified chronicity Lymphadenopathy CBC WITH DIFFERENTIAL Routine 05/17/2024 1:13 PM LOCOMOTIVE CRANE OPERATOR HELPER Right shoulder pain, unspecified chronicity Lymphadenopathy WI ARTHROCENTESIS ASPIR&/INJ MAJOR JT/BURSA W/O US Routine 05/09/2024 10:45 AM LOCOMOTIVE CRANE OPERATOR HELPER S/P right rotator cuff repair MRI SHOULDER WO CONTRAST RIGHT Routine 05/05/2024 7:29 AM LOCOMOTIVE CRANE OPERATOR HELPER Traumatic incomplete tear of right rotator cuff, initial encounter MICROALBUMIN/CREATIN INE RATIO, RANDOM UR Routine 01/01/2023 10:14 AM CDT LIPID PANEL Routine 01/01/2023 10:14 AM CDT Annual physical exam HEMOGLOBIN A1C Routine 01/01/2023 10:14 AM CDT HM DIABETES EYE EXAM Routine 10/01/2021 from Last 3 Months or Most Recently Relevant to Health Maintenance Results * PROCEDURE PHOTOGRAPHS (07/27/2024 1:32 PM CDT) us Provider Scanning PROCEDURE/MINOR SURGICAL ORDER SUSANNE Final Result * (ABNORMAL) POC GLUCOSE (2024 8:50 AM CDT) Only the most recent of3 resultswithin the time period is included. GLUCOSE POC 230(H) 74 - 99 mg/dL 2024 8:50 AM CDT [facility] [employer] POINT OF CARE SPECIMEN SOURCE, GLUCOSE POC Whole Blood 2024 8:50 AM CDT [facility] POINT OF CARE Blood, whole 2024 8:50 AM CDT 2024 8:56 AM CDT Jose Luis Arevalo MD POINT OF CARE TESTING Final Re sult [facility] POINT OF CARE CLIA # [id number] [place] [address] * [place] ANESTHESIA BLOCK PB PLACEHOLDER CHARGE (2024 7:45 AM CDT) Gabe Velazquez MD - 2024 7:45 AM CDT Gabe Watson MD 2024 7:46 AM Peripheral Block Patient location during procedure: Pre-op Start time: 2024 7:00 AM Reason for block: at surgeon's request and post-op pain management Staffing Performed: Anesthesiologist (/) Authorized by: Gabe Watson MD Performed by: Gabe Watson MD Traveling Construction Superintendent: Alaina White NP Preanesthetic Checklist Completed: patient identified, IV checked, site marked, risks and benefits discussed, surgical consent, monitors and equipment checked, pre-op evaluation and timeout performed Hand hygiene performed prior to procedure Patient was prepped and draped in usual sterile fashion Patient position: Supine Prep: ChloraPrep Patient monitoring: Continuous pulse oximetry, EKG, Heart rate and Non-invasive blood pressure Block Region: Upper Extremity Block Block Type: Interscalene Laterality: Right Injection technique: Single-shot [place] Identification: ultrasound guided Skin Infiltration: Lidocaine 1% Local injected: Bupivacaine with epinephrine (30 ml injected) Needle Needle type: Short-bevel Needle gauge: 22 G Needle localization: Ultrasound Guidance Nerve Stimulator or Paresthesia Response Motor response or paresthesia obtained mA ms Depth (cm) Sedation Given: Patient Response: Awake, Responsive to painful stimuli, Responsive to physical stimuli and Responsive to verbal stimuli Assessment Slow fractionated injection: yes Narrative Events: easy and well tolerated Outcome: A full evaluation is pending Additional Notes Propofol mg. Patient alert and responsive throughout procedure. Gabe Watson MD PROCEDURE/MINOR SURGICAL ORD ERABLES Final Result * POC , URINE (2024 6:20 AM CDT) HCG QUAL URINE POC Negative Negative, Indeterminate [facility] POINT OF CARE INTERNAL KIT QC POC Pass Pass [facility] POINT OF CARE KIT LOT NUMBER POC [phone] [facility] POINT OF CARE KIT EXP DATE POC 09-20-25 [facility] POINT OF CARE Urine 2024 6:20 AM CDT Charlene Castro MD POINT OF CARE T ESTING Final Result [facility] POINT OF CARE CLIA # [id number] [place] [address] * CBC WITH DIFFERENTIAL (07/21/2024 9:22 AM CDT) Only the most recent of2 resultswithin the time period is included. WBC 9.5 4.0 - 9.8 K/uL 07/21/2024 9:44 AM CDT [facility] RBC 4.67 3.90 - 4.90 M/uL 07/21/2024 9:44 AM CDT [facility] HEMOGLOBIN 13.4 11.8 - 14.8 g/dL 07/21/2024 9:44 AM CDT [facility] LABORATORY SERVICES [facility] HEMATOCRIT 41.0 35.5 - 44.0 % 07/21/2024 9:44 AM CDT [facility] MCV 87.8 82.0 - 99.0 fL 07/21/2024 9:44 AM CDT [facility] MCH 28.7 27.2 - 32.6 pg 07/21/2024 9:44 AM CDT [facility] MCHC 32.7 31.5 - 35.5 g/dL 07/21/2024 9:44 AM CDT [facility] RDW 13.4 11.5 - 14.5 % 07/21/2024 9:44 AM CDT [facility] RDW-STDEV 43.4 37.1 - 48.7 fL 07/21/2024 9:44 AM CDT [facility] PLATELETS 310 140 - 350 K/uL 07/21/2024 9:44 AM CDT [facility] MPV 10.1 9.3 - 12.4 fL 07/21/2024 9:44 AM CDT [facility] NEUTROPHILS 65 % 07/21/2024 9:44 AM CDT [facility] LYMPHOCYTES 26 % 07/21/2024 9:44 AM CDT [facility] MONOCYTES 5 % 07/21/2024 9:44 AM CDT [facility] EOSINOPHILS 4 % 07/21/2024 9:44 AM CDT [facility] BASOPHILS 0 % 07/21/2024 9:44 AM CDT [facility]OR[facility] IMMATURE GRANULOCYTES 0 % 07/21/2024 9:44 AM CDT [facility] NEUTROPHIL ABSOLUTE 6.14 1.90 - 7.00 K/uL 07/21/2024 9:44 AM CDT [facility] LYMPHOCYTE ABSOLUTE 2.45 0.70 - 4.50 K/uL 07/21/2024 9:44 AM CDT [facility] MONOCYTE ABSOLUTE 0.45 0.10 - 1.30 K/uL 07/21/2024 9:44 AM CDT [facility] EOSINOPHIL ABSOLUTE 0.42 0.00 - 0.70 K/uL 07/21/2024 9:44 AM CDT [facility] BASOPHILS ABSOLUTE 0.03 0.00 - 0.20 K/uL 07/21/2024 9:44 AM CDT [facility] IMMATURE GRANULOCYTES ABSOLUTE 0.02 0.00 - 0.03 K/uL 07/21/2024 9:44 AM CDT [facility] Blood Venipuncture / Unknown 07/21/2024 9:22 AM CDT 07/21/2024 9:40 AM CDT us Marita Pierre MD HEMATOLOGY ORDERABLES Final Re sult [facility] CLIA# [id number] [place] [address] * (ABNORMAL) BASIC METABOLIC PANEL (07/21/2024 9:22 AM CDT) SODIUM 138 136 - 145 mmol/L 07/21/2024 10:11 AM T [facility] POTASSIUM 4.0 3.4 - 5.1 mmol/L 07/21/2024 10:11 AM T [facility] CHLORIDE 104 98 - 107 mmol/L 07/21/2024 10:11 AM CDT [facility] CO2 23 22 - 29 mmol/L 07/21/2024 10:11 AM T [facility] CALCIUM 8.8 8.6 - 10.4 mg/dL 07/21/2024 10:11 AM T [facility] BUN 9 6 - 20 mg/dL 07/21/2024 10:11 AM T [facility] CREATININE 0.50(L) 0.51 - 0.95 mg/dL 07/21/2024 10:11 AM T [facility] GLUCOSE 144(H) 74 - 99 mg/dL 07/21/2024 10:11 AM T [facility] GFR >60 >=60 mL/min/1.7 3 sq meter 07/21/2024 10:11 AM T [facility] Comment:eGFR calculated with 2020 CKD-EPI equation. Vegetarian diet, extremely high or low muscle mass, and may affect results. Cystatin C with Glomerular Filtration Rate is a suitable alternative for these patients. ANION GAP 11 8 - 16 mmol/L 07/21/2024 10:11 AM T [facility] Blood Venipuncture / Unknown 07/21/2024 9:22 AM CDT 07/21/2024 9:40 AM CDT Charlene Castro MD CHEMISTRY ORDER SUSANNE Final Result [facility] CLIA# [id number] [place] [address] * C-REACTIVE PROTEIN (05/17/2024 1:13 PM LOCOMOTIVE CRANE OPERATOR HELPER) CRP <3.0 <8.0 mg/L [facility] Comment: Test Performed at: [email or web address] [address] [address] Wilner Hogan MD Blood 05/17/2024 1:13 PM LOCOMOTIVE CRANE OPERATOR HELPER 05/18/2024 5:10 AM LOCOMOTIVE CRANE OPERATOR HELPER us Marita Pierre MD CHEMISTRY ORDERABLES Final Res ult [facility] [phone] [facility] [address] [address] [address] * [place] ARTHROCENTESIS ASPIR&/INJ MAJOR JT/BURSA W/O US (05/09/2024 10:45 AM LOCOMOTIVE CRANE OPERATOR HELPER) Narrative Jose Luis Arevalo MD - 05/09/2024 10:45 AM LOCOMOTIVE CRANE OPERATOR HELPER Jose Luis Arevalo MD 05/09/2024 11:26 AM Large Joint Drain/Inject Date/Time: 05/09/2024 10:45 AM Authorized by: Jose Luis Arevalo MD Performed by: Jose Luis Arevalo MD Consent given by: patient Site marked: site marked Timeout: Immediately prior to procedure a time out was called to verify the correct patient, procedure, equipment, business support administrator and site/side marked as required Supporting Documentation Indications: pain Anesthesia Local anesthesia used?: local anesthesia not used Sedation Patient sedated?: patient not sedated Procedure Details Location: shoulder - R glenohumeral Preparation: Patient was prepped and draped in the usual sterile fashion Needle size: 22 G Approach: anterior Triamcinolone amount: 40 mg Patient tolerance: patient tolerated the procedure well with no immediate complications Right shoulder Glenohumeral joint injection was performed from an anterior approach through the rotator interval. Area was marked and then prepped with alcohol swabbed and chlorhexidine. Ethyl chloride spray was used to anesthetize the skin. I then injected 40 mg Kenolog with 4 cc 0.2% Ropivacaine without difficulty. Patient tolerated the procedure well and without any immediate complications. Patient was advised to ice the area and take NSAIDs or Tylenol as able to reduce post-injections us Jose Luis Arevalo MD PROCEDURE/MINOR SURGICAL ORDER SUSANNE Final Result * MRI SHOULDER WO CONTRAST RIGHT (05/05/2024 7:29 AM LOCOMOTIVE CRANE OPERATOR HELPER) Anatomical Region Laterality Modality Upper Extremity Magnetic Resonan ce 05/05/2024 7:34 AM LOCOMOTIVE CRANE OPERATOR HELPER Impressions 05/05/2024 4:41 PM LOCOMOTIVE CRANE OPERATOR HELPER IMPRESSION: 1. Postoperative changes of rotator cuff repair with patch. Moderate supraspinatus and infraspinatus tendinosis without tear. 2. Moderate subacromial/subdeltoid bursitis. 3. Supraspinatus and posterior deltoid muscle denervation edema or strain. 4. Nonspecific glenohumeral joint effusion. Correlate clinically to exclude infection. 5. Mild rotator interval capsulitis or synovitis. 6. Abnormal increased number of lymph nodes in the right supraclavicular and axillary regions. Consider reactive or neoplastic causes. DICTATION LOCATION: Location 1 [facility] 05/05/2024 4:41 PM LOCOMOTIVE CRANE OPERATOR HELPER MRI SHOULDER WO CONTRAST RIGHT DATE: 05/05/2024 7:29 AM HISTORY: 38-year-old female with stiffness after rotator cuff repair with bio-inductive patch. TECHNIQUE: Multiplanar, multisequence 3T MRI of the right shoulder without IV contrast. COMPARISON: MRI 01/26/2024 FINDINGS: ROTATOR CUFF: * Supraspinatus: Moderate tendinosis without full-thickness tear. * Infraspinatus: Moderate tendinosis * Teres Minor: Intact. * Subscapularis: Intact. BICEPS: Intra-articular tendinosis. ROTATOR INTERVAL: Mild increased T2 signal. GLENOHUMERAL JOINT / LABRUM: * Joint space: Small effusion. * Labrum: Limited evaluation. No obvious abnormality. * Cartilage: No focal defect * Glenohumeral ligaments: Within normal limits. ACROMIOCLAVICULAR: * AC joint: Within normal limits. * Acromial type: Type I - Flat * Subacromial / Subdeltoid bursa: Moderate amount of fluid BONES: Mild patchy subchondral marrow edema. Tiny suture anchors in the posterior greater tuberosity. MUSCLES / SOFT TISSUES: High T2 signal in the supraspinatus and posterior deltoid muscles. Mild subcutaneous soft tissue edema posteriorly with postsurgical changes. Increased number of right supraclavicular and axillary lymph nodes. Procedure Note Jimmie Capps MD - 05/05/2024 MRI SHOULDER WO CONTRAST RIGHT DATE: 05/05/2024 7:29 AM HISTORY: 38-year-old female with stiffness after rotator cuff repair with bio-inductive patch. TECHNIQUE: Multiplanar, multisequence 3T MRI of the right shoulder without IV contrast. COMPARISON: MRI 01/26/2024 FINDINGS: ROTATOR CUFF: * Supraspinatus: Moderate tendinosis without full-thickness tear. * Infraspinatus: Moderate tendinosis * Teres Minor: Intact. * Subscapularis: Intact. BICEPS: Intra-articular tendinosis. ROTATOR INTERVAL: Mild increased T2 signal. GLENOHUMERAL JOINT / LABRUM: * Joint space: Small effusion. * Labrum: Limited evaluation. No obvious abnormality. * Cartilage: No focal defect * Glenohumeral ligaments: Within normal limits. ACROMIOCLAVICULAR: * AC joint: Within normal limits. * Acromial type: Type I - Flat * Subacromial / Subdeltoid bursa: Moderate amount of fluid BONES: Mild patchy subchondral marrow edema. Tiny suture anchors in the posterior greater tuberosity. MUSCLES / SOFT TISSUES: High T2 signal in the supraspinatus and posterior deltoid muscles. Mild subcutaneous soft tissue edema posteriorly with postsurgical changes. Increased number of right supraclavicular and axillary lymph nodes. IMPRESSION: 1. Postoperative changes of rotator cuff repair with patch. Moderate supraspinatus and infraspinatus tendinosis without tear. 2. Moderate subacromial/subdeltoid bursitis. 3. Supraspinatus and posterior deltoid muscle denervation edema or strain. 4. Nonspecific glenohumeral joint effusion. Correlate clinically to exclude infection. 5. Mild rotator interval capsulitis or synovitis. 6. Abnormal increased number of lymph nodes in the right supraclavicular and axillary regions. Consider reactive or neoplastic causes. DICTATION LOCATION: Location - [facility] us Jose Luis Arevalo MD MR ORDERABLES Final Result * MICROALBUMIN/CREATININE RATIO, RANDOM UR (01/01/2023 10:14 AM CDT) Creatinine, Urine 94 20 - 275 mg/dL [facility] MICROALBUMIN, URINE 0.6 See Note: mg/dL [facility] Comment: Reference Range: Reference Range Not established MICROALBUMIN/CREAT RATIO, UR 6 <30 mcg/mg creat [facility] Comment: The ADA defines abnormalities in albumin excretion as follows: Albuminuria Category Result (mcg/mg creatinine) Normal to Mildly increased <30 Moderately increased 30-299 Severely increased > OR = 300 The ADA recommends that at least two of three specimens collected within a 3-6 month period be abnormal before considering a patient to be within a diagnostic category. Test Performed at: [facility] [id number] [place] [address] Wilner Hogan MD Urine URINE SPECIMEN OBTAINED BY CLEAN CATCH PROCEDURE / Unknown 01/01/2023 10:14 AM CDT 01/02/2023 4:13 AM CDT us Maisha Main ANP URINE ORDERABLES Final Resul t [facility] [phone] [facility] [address] [place] [address] * (ABNORMAL) HEMOGLOBIN A1C (01/01/2023 10:14 AM CDT) HEMOGLOBIN A1C 7.5(H) <5.7 % of total Hgb [facility] Comment: For someone without known diabetes, a hemoglobin A1c value of 6.5% or greater indicates that they may have diabetes and this should be confirmed with a follow-up test. For someone with known diabetes, a value <7% indicates that their diabetes is well controlled and a value greater than or equal to 7% indicates suboptimal control. A1c targets should be individualized based on duration of diabetes, age, comorbid conditions, and other considerations. Currently, no consensus exists regarding use of hemoglobin A1c for diagnosis of diabetes for children. ESTIMATED AVERAGE GLUCOSE (MG/DL) 169 mg/dL [facility] ESTIMATED AVERAGE GLUCOSE (MMOL/L) 9.3 mmol/L [facility] Comment: Test Performed at: [facility] [address] [place] [address] Wilner Hogan MD Blood 01/01/2023 10:1 4 AM CDT 01/02/2023 4:17 AM CDT Maisha Main ANP CHEMISTRY ORDERABLES Final R esult Performing Organization Address City/[facility]/ZIP Co de Phone Number [facility] [phone] [facility] [address] [place] [address] * LIPID PANEL (01/01/2023 10:14 AM CDT) CHOLESTEROL TNP mg/dL [facility] Comment: Unable to report. The specimen received was contaminated with EDTA. HDL TNP mg/dL [facility] Comment: Unable to report. The specimen received was contaminated with EDTA. TRIGLYCERIDE TNP mg/dL [facility] Comment: Unable to report. The specimen received was contaminated with EDTA. LDL CALCULATED TNP mg/dL (calc) [facility] Comment: Unable to report. The specimen received was contaminated with EDTA. CHOL/HDL RATIO TNP (calc) [facility] Comment: Unable to report. The specimen received was contaminated with EDTA. TOTAL NON-HDL CHOL(LDL+VLDL) TNP mg/dL (calc) [facility] Comment: Unable to report. The specimen received was contaminated with EDTA. Test Performed at: [facility] [facility] [address] [facility] [place] [address] Wilner Hogan MD Blood 01/01/2023 10:1 4 AM CDT 01/02/2023 4:17 AM CDT us Maisha Main ANP CHEMISTRY ORDERABLES Final R esult [facility] [phone] [facility] [address] [place] [address] [place] [address] * DIABETES EYE EXAM (10/01/2021) Janice Rich MD HEALTH MAINTENANCE Fi nal Result [facility] MATERNAL MED RANDLE [id number] [facility] [address] [place] [address] from Last 3 Months or Most Recently Relevant to Health Maintenance Insurance [employer] OPEN ACCESS RX [employer] INTERNAL ONLY (INTERNAL) [facility] EMPLOYEE WORK COMP [address] [place] [address] Advance Directives For more information, please contact: [phone] * Full Code (Latest Code Status on File) Date Activated Date Inactivated Comments 2024 6:14 AM 2024 12:49 PM * Full Code Date Activated Date Inactivated Comments 03/16/2024 9:08 AM 03/16/2024 5:25 PM * Full Code Date Activated Date Inactivated Comments 03/08/2024 8:41 AM 03/08/2024 3:06 PM * Full Code Date Activated Date Inactivated Comments 01/19/2022 4:34 PM 01/22/2022 10:08 PM * Full Code Date Activated Date Inactivated Comments 01/19/2022 8:07 AM 01/19/2022 4:34 PM Care Teams Deputy Manager Relationship Specialty Start Date End Date Marita Pierre MD [address] [place] [id number] PCP - General Internal Medicine 09/21/23
--- OUTSIDE RECORDS SUMMARY | 2024-08-01 10:13 | XMS_ITS | Clinical Summary ---
Author Organization [facility] Address [address] [place] [address] Care Team Providers Care Platform Builder Name Role Phone No, Physician Primary Care Provider [phone] Allergies Active Allergy Reactions Criticality Noted Date Comments Cefaclor Hives Medium 12/07/2014 Other reaction(s): Urticaria Levofloxacin Swelling,Urticaria Medium 12/07/2014 Penicillins Hives,Urticaria,Swelling Medium 12/07/2014 Medications zolpidem CR (AMBIEN CR) 12.5 mg CR tabletIndications :Insomnia Take 1 tablet (12.5 mg total) by mouth nightly as needed 09/10/19 18 Active FREESTYLE LITE STRIPS stripIndications: Type 1 diabetes mellitus without complication (HCC) USE TO TEST BLOOD SUGAR 8-10 TIMES DAILY 300 each 3 06/01/19 19 Active blood-glucose meter,continuous (DEXCOM G6 INSURANCE RISK SURVEYOR) [facility] One cell support operator 1 each 10/06/19 19 Active escitalopram (LEXAPRO) 20 mg tabletIndications :Depression Take 1 tablet (20 mg total) by mouth every morning 90 tablet 3 04/29/19 23 Active pen needle, diabetic (NovoFine Plus) 32 gauge x 1/6 needleIndications :Type 1 diabetes mellitus without complication (HCC) Use in case of pump failure 50 each 1 09/21/19 24 Active insulin syringe-needle U-100 1 mL 31 gauge x 16 syringeIndication s:Type 1 diabetes mellitus without complication (HCC) Use to inject insulin in case of pump failure 50 each 1 09/21/19 24 Active NovoLOG 100 unit/mL vial for injectionIndicati ons:Type 1 diabetes mellitus without complication (HCC) Use Novolog per insulin pump: TDD 70 units 70 mL 04/25/19 25 Active tirzepatide (Mounjaro) 15 mg/0.5 mL pen injectorIndicatio ns:Diabetes mellitus with features of insulin resistance (HCC) Inject 15 mg under the skin once a week 6 mL 04/25/19 25 026 Active TRESIBA 100 unit/mL (3 mL) pen for injectionIndicati ons:Type 1 diabetes mellitus without complication (HCC) Inject 36 units in case of pump failure 15 mL 04/25/19 25 Active glucagon (Gvoke HypoPen 2-Pack) 1 mg/0.2 mL auto-injectorIndi cations:Type 1 diabetes mellitus without complication (HCC) Use one Gvoke pen as needed for hypoglycemia 0.4 mL 04/25/19 25 Active blood-glucose sensor (Dexcom G6 Sensor) deviceIndications :Type 1 diabetes mellitus with hyperglycemia (HCC) CHANGE SENSOR EVERY 10 DAYS 9 each 04/25/19 25 Active blood-glucose transmitter (Dexcom G6 Transmitter) deviceIndications :Type 1 diabetes mellitus with hyperglycemia (HCC) CHANGE TRANSMITTER EVERY 90 DAYS 1 each 04/25/19 25 Active insulin pump cart,auto,BT,G6/7 (Omnipod 5 G6-G7 Pods, Gen 5,) cartridgeIndicati ons:Type 1 diabetes mellitus with hyperglycemia (HCC) Change pod every 2 days 45 each 04/25/19 25 Active Active Problems Problem Noted Date Diagnosed Date Mixed hyperlipidemia 04/25/2024 Diabetes mellitus with features of insulin resis tance 09/21/2023 Hx of breast reconstruction 10/12/2018 Overview (10/12/2018): Added automatically from request for surgery [id number] 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 Overview (10/12/2018): Added automatically from request for surgery [id number] Family history of breast cancer 10/12/2018 Overview (10/12/2018): Added automatically from request for surgery [id number] Monoallelic mutation of CHEK2 gene in female pat ient 05/18/2018 Overview (05/18/2018): Added automatically from request for surgery [id number] Insulin pump titration 03/29/2018 Acquired absence of breast and absent nipple, bi lateral 10/25/2017 Genetic predisposition to breast cancer 10/13/19 18 Type 1 diabetes mellitus with hyperglycemia 09/17 Assessment & Plan (04/29/2022 4:53 PM BUSINESS OBJECTS REPORT DEVELOPER): -Currently using Omnipod 5 insulin pump and Dexcom -A1C on 04/29/22 was 7.6% - Dexcom download indicates fairly stable pattern. After starting Optavia, her blood sugars were very stable. She had a steroid injection yesterday which has caused higher readings currently. Will adjust Target Glucose from 120-150 to 120-120 mg/dl. Will follow with her response.- -Discussed diet and activity modifications. -Advised to call with any concerns/complaints regarding glucose readings -Eye exam is up to date Assessment & Plan (04/27/2018 3:14 PM BUSINESS OBJECTS REPORT DEVELOPER): Diabetes is unchanged. A1c was 9.0% in May,; 9.1% today. Continue current treatment regimen. Reminded to bring in blood sugar diary at next visit. Dietary recommendations for ADA diet. Regular aerobic exercise. Discussed ways to avoid symptomatic hypoglycemia. Discussed sick day management. Discussed foot care. Diabetes will be reassessed in 3 months. Continue current insulin pump with the following setting changes: INSULIN PUMP MODEL: Omnipod INSULIN: Novolog SETTINGS: TIME: BASAL RATE: ICR: TDB: 27.60-->28.8 0000 1.15-->1.2 1:10-->9 SENSITIVITY: 40 TARGET: 90-130 AIT: 4 hours Please schedule eye appointment Please PCP draw the following labs this Wednesday: CBC, CMP, lipid panel, TSH, vitamin D, urine for microalbumin Please contact diabetes center with any questions/concerns Assessment & Plan (09/30/2017 9:22 AM CDT): T1DM on Insulin pump: 1.3 unit/hr, with bolus carb 1 for every 9 gram at home. - Fasting blood sugar on the lower side. Oral intake reduced. - Patient told to decrease basal to temporary basal to 80% and bolus to 1 to 10 for another 24hrs. Assessment & Plan (09/29/2017 7:51 PM CDT): T1DM on Insulin pump: 1.3 unit/hr, with bolus carb 1 for every 9 gram. - Patient awake and alert and safe to continue current insulin pump. - Patient signed consent form this AM, if any deterioration in mental status will switch to regular insulin regime. Encounter to discuss breast reconstruction 09/18 Assessment & Plan (09/30/2017 9:22 AM CDT): S/p breast reconstruction POD 1 At risk for breast cancer 01/20/2017 Resolved Problems Problem Noted Date Diagnosed Date Resolved Date Type 1 diabetes mellitus without complication 12/29/19 24 04/25/2024 Immunizations Immunization Administration Dates Next Due Influenza, Trivalent, Cell C ulture-based MDCK, Preservative Free, Antibiotic Free, Intramuscular 02/04/2023 Tdap 02/04/2023 Surgical History Surgery Date Site/Laterality Comments MASTECTOMY 04/19/2017 - 04/18/2018 Bilateral APPENDECTOMY 04/19/1995 - 04/18/1996 SECTION 2012, 2015 BREAST SURGERY 04/19/2017 - 04/18/2018 Bilateral Mastectomy BREAST SURGERY 06/17/2018 - 07/17/2018 Bilateral Tissue expanders removed Medical History Medical History Date Comments Encounter for fitting or adj ustment of insulin pump Insulin pump titration - (Ad ded by TW Conv) Diabetes mellitus type I (HCC) o n insulin pump Diabetes mellitus with featu res of insulin resistance (HCC) 09/21/2023 Family History Medical History Relation Name Comments Heart attack Maternal Grandmother Cancer Mother Family history of malignant neoplasm - (Added by TW Conv) Diabetes type I Other 1 Type 1 Diabe hollis Mellitus - Relation: Uncle (Added by TW Conv) Cancer Other 2 Family history of malignant neoplasm - Relation: Grandmother (Added by TW Conv) Cancer Other 3 Family history of malignant neoplasm - Relation: Aunt (Added by TW Conv) Anesthesia problems Neg Hx Relation Name Status Comments Maternal Grandmother Mother Other 1 Other 2 Other 3 Social History Tobacco Use Types Packs/Day Years Used Date Smoking Tobacco: Never Smokeless Tobacco: Never Tobacco Cessation:Counseling Given: Not Answered Alcohol Use Standard Drinks/Week Comments Yes 2 (1 standard drink = 0.6 oz pur e alcohol) AUDIT-C Answer Date Recorded Q1: How often do you have a drink containing alc ohol? Monthly or less 09/21/2023 Q2: How many drinks containi ng alcohol do you have on a typical day when you are drinking? 1 or 2 09/21/2023 Frequency of Binge Drinking Not on file 07/2023 Comments No Sex and Gender Information Value Date Recorded Sex Assigned at Not on file Legal Sex Female 10:36 AM BUSINESS OBJECTS REPORT DEVELOPER Gender Identity Not on file Sexual Orientation Not on file Obstetrics History Last Filed Vital Signs Vital Sign Reading Time Taken Comments Blood Pressure 107/72 12/27/2023 1:37 PM CDT Pulse 114 12/27/2023 1:37 PM CDT Temperature 36.9 C (98.4 F) 12/27/2023 1:37 PM CDT Respiratory Rate 16 11/11/2018 10:10 AM CDT Oxygen Saturation 98% 12/27/2023 1:37 PM CDT Inhaled Oxygen Concentration - - Weight 71.7 kg (158 lb) 12/27/2023 1:37 PM CDT Height 162.6 cm (5' 4 ) 12/27/2023 1:37 PM CDT Body Mass Index 27.12 12/27/2023 1:37 PM CDT Plan of Treatment Health Maintenance Due Date Last Done Comments Albumin Creatinine Ratio, Urine 1987 Cervical Cancer Screening 1987 Depression Screening 1987 Foot Exam 1987 Hepatitis C Screening 1987 TSH Level 1987 eGFR 1987 Dilated Eye Exam 07/25/1997 Lipid Panel 07/25/1997 Regular Well Visit/Exam 18-64 07/25/2005 Pneumococcal vaccine <65 (1 of 2 - PCV) 07/25/2006 Hemoglobin A1C 06/25/2024 12/27/2023, 07/2023, 01/01/2023, Additional history exists DTaP/Tdap/Td Vaccine (4 - Td or Tdap) 02/04/2033 02/04/2023, 04/20/2021, 12/11/2009 Varicella Vaccines Completed 04/28/2007, 03/21/2002 Hepatitis B Screening Completed 02/25/2011 Influenza Vaccine Completed 01/01/2024, , 02/15/2022, Additional history exists HPV Vaccines Aged Out No longer eligi ble based on patient's age to complete this topic Medical Devices Implanted Type Area Coffee Maker Servicer Device Identifier Shelf Expiration Date Model / Serial / Lot [employer]er[employer] Ssx-800 Natrelle Inspira Smooth Xfull Profile Implant 800cc Breast - [id number] - [id number] Implanted:Qty: 1 on 11/11/2018 by Alysha Chavez MD at [facility] Breast Right: Breast [employer]er[employer] 06/21/2023 SSX-800 / [id number] / [id number] Acelity Lp Inc [id number] Alloderm [id number] Allograft Regenerative Freeze Dry Thick Matrix - [id number] - [id number] Implanted:Qty: 1 on 09/29/2017 by Alysha Chavez MD at [facility] Mesh Right: Breast [employer] 08/17/2019 [id number] / [id number] / [id number] [employer] Natrelle Biocell Magna-Site [id number] Style 133mx Textured Tab - [id number] - [id number] Implanted:Qty: 1 on 09/29/2017 by Alysha Chavez MD at [facility] Other - see comments Right: Breast [employer] 03/31/2021 133MX-14- T / [id number] / [employer] Natrelle Biocell Magna-Site [id number] Style 133mx Textured Tab - [id number] - [id number] Implanted:Qty: 1 on 09/29/2017 by Alysha Chavez MD at [facility] Other - see comments Left: Breast [employer] 05/29/2021 133MX-14- T / [id number] / Acel[employer] Lp Inc [id number] Alloderm [id number] Allograft Regenerative Freeze Dry Thick Matrix - [id number] - [id number] Implanted:Qty: 1 on 09/29/2017 by Alysha Chavez MD at [facility] Left: Breast [employer] 08/17/2019 [id number] / [id number] / [id number] [employer]er[employer] Ssx-800 Natrelle Inspira Smooth Xfull Profile Implant 800cc Breast - [id number] - [id number] Implanted:Qty: 1 on 06/17/2018 by Alysha Chavez MD at [facility] [employer] 07/04/2022 SSX-800 / [id number] / [employer] Ssx-800 Natrelle Inspira Smooth Xfull Profile Implant 800cc Breast - [id number] - [id number] Implanted:Qty: 1 on 06/17/2018 by Alysha Chavez MD at [facility] Left: Breast [employer] 06/29/2022 SSX-800 / [id number] / Explanted Type Area Coffee Maker Servicer Device Identifier Shelf Expiration Date Model / Serial / Lot [employer]ergan [employer] 133mx-11 Natrelle; Biocell; Magna-Site W11 Cm X H10 Cm Style 133mx-T; Text - [id number] Explanted:Qty: 1 on 06/17/2018 at [facility] [employer] 133MX-11 / / [id number] [employer]gan [employer] 133mx-11 Natrelle; Biocell; Magna-Site W11 Cm X H10 Cm Style 133mx-T; Text - [id number] - [id number] Explanted:Qty: 1 on 06/17/2018 by Alysha Chavez MD at [facility] Right: Breast [employer] 07/04/2022 133MX-11 / [id number] / Procedures Procedure Name Priority Date/Time Associated Diagnosis Comments POCT HEMOGLOBIN A1C Routine 12/27/2023 1 :46 PM CDT Type 1 diabetes mellitus without complication (HCC) from Last 3 Months or Most Recently Relevant to Health Maintenance Results * POCT hemoglobin A1c (12/27/2023 1:46 PM CDT) Hemoglobin A1C, POC 7.1 4.0 - 5.6 % Capillary blood 12/27/2023 1 :46 PM CDT Evelyn Lopez NP POINT OF CARE TEST ORDERAB LES Final Result from Last 3 Months or Most Recently Relevant to Health Maintenance Insurance [facility] [employer]CIAL GENERIC CIG[employer] Advance Directives For more information, please contact: [phone] * Full Code (Latest Code Status on File) Date Activated Date Inactivated Comments 09/29/2017 11:38 AM 09/30/2017 1:36 PM Care Teams Platform Builder Relationship Specialty Start Date End Date No, Physician PCP - General 09/29/17
--- OUTSIDE RECORDS SUMMARY | 2024-08-01 10:13 | XMS_ITS | Encounter Summary ---
Author Organization [facility] Address [address] [place] [address] Care Team Providers Care Linux Systems Engineer Name Role Phone Marita Pierre MD Primary Care Provider [phone] Encounter Details Date Type Department Care Team (Late st Contact Info) Description 07/21/2024 Results Follow-Up [facility] at Work [employer] [address] [place] [address] Marita Pierre MD [address] [place] [address] CBC WITH DIFFERENTIAL Social History Tobacco Use Types Packs/Day Years Used Date Smoking Tobacco: Never Passive Smoke Exposure: Never Smokeless Tobacco: Never Alcohol Use Standard Drinks/Week Comments Yes 6 (1 standard drink = 0.6 oz pur e alcohol) 3 days a week, 1-2 drinks Feeling Safe Answer Date Recorded Are you in a relationship wi th someone who hurts you emotionally and/or physically? No 07/21/2024 Food Insecurity Answer Date Recorded Social/Environmental Concerns No concerns Transportation Needs Answer Date Record ed Social/Environmental Concerns No concerns Housing Stability Answer Date Recorded Social/Environmental Concerns No concerns Utility Needs Answer Date Recorded Social/Environmental Concerns No concerns Comments No Sex and Gender Information Value Date Recorded Sex Assigned at Not on file Legal Sex Female 11:17 AM COMMUNITY OUTREACH ADVOCATE Gender Identity Not on file Sexual Orientation Not on file documented as of this encounter Miscellaneous Notes * Result Encounter Note - Stephanie De La Garza - 07/21/2024 1:12 PM CDT Lvm for pt to call our office back regarding labs. documented in this encounter Plan of Treatment Upcoming Encounters Date Type Department Care Team (Late st Contact Info) Description 08/08/2024 11:15 AM CDT Work Comp [facility] Orthopedic Surgery at the [facility] [address] [place] [address] [place] [address] [place] [address] documented as of this encounter Visit Diagnoses Not on filedocumented in this encounter Additional Health Concerns Assessment Noted Time PHQ-9 Depression Total Score: 2 03/30/20 18 8:00 AM COMMUNITY OUTREACH ADVOCATE documented as of this encounter Care Teams Linux Systems Engineer Relationship Specialty Start Date End Date Marita Pierre MD [address] [place] [address] [place] [address] PCP - General Internal Medicine 09/21/23 documented as of this encounter
--- OUTSIDE RECORDS SUMMARY | 2024-08-01 10:13 | XMS_ITS | Clinical Summary ---
Author Organization [facility] Address [address] [place] [address] Care Team Providers Care Leather Repairer Name Role Phone New Referring, Provider Primary Care Provider Un available Allergies Active Allergy Reactions Criticality Noted Date Comments Cefaclor Hives 04/10/2018 Levofloxacin Swelling 04/10/2018 Penicillins Hives,Swelling 04/10/2018 Medications insulin aspart 100 UNIT/ML injection (VIAL) Inject into the skin 3 (three) times daily before meals. As directed/pum p Active zolpidem 12.5 MG CR tablet Take 12.5 mg by mouth nightly as needed for Sleep. Active Family History Medical History Relation Comments Cancer Mother Diabetes Mother Stroke Mother Relation Status Comments Mother Social History Tobacco Use Types Packs/Day Years Used Date Smoking Tobacco: Never Smokeless Tobacco: Never Alcohol Use Standard Drinks/Week Comments Yes 0 (1 standard drink = 0.6 oz pur e alcohol) AUDIT-C Answer Date Recorded Frequency of Alcohol Consumption Never 04/10/2018 Average Number of Drinks Not on file 018 Frequency of Binge Drinking Not on file 03/20 Comments No Sex and Gender Information Value Date Recorded Sex Assigned at Not on file Legal Sex Female 8:43 AM MENTAL HEALTH CONSULTANT Gender Identity Not on file Sexual Orientation Not on file Last Filed Vital Signs Vital Sign Reading Time Taken Comments Blood Pressure 115/72 04/10/2018 8:50 AM MENTAL HEALTH CONSULTANT Pulse 127 04/10/2018 8:50 AM MENTAL HEALTH CONSULTANT Temperature 37.8 C (100 F) 04/10/2018 8:50 AM MENTAL HEALTH CONSULTANT Respiratory Rate 20 04/10/2018 8:50 AM MENTAL HEALTH CONSULTANT Oxygen Saturation 98% 04/10/2018 8:50 AM MENTAL HEALTH CONSULTANT Inhaled Oxygen Concentration - - Weight 72.6 kg (160 lb) 04/10/2018 8:50 AM MENTAL HEALTH CONSULTANT Height 162.6 cm (5' 4 ) 04/10/2018 8:50 AM MENTAL HEALTH CONSULTANT Body Mass Index 27.46 04/10/2018 8:50 AM MENTAL HEALTH CONSULTANT Plan of Treatment Health Maintenance Due Date Last Done Comments Cervical Cancer Screening Pa p Smear (Age 30 to 64) Every 3 Years 1987 Annual Physical 07/25/1990 Hepatitis C 07/25/2005 DTaP, Tdap and Td Vaccines ( 1 - Tdap) 07/25/2006 Hepatitis B Vaccines (1 of 3 - 19+ 3-dose series) 07/25/2006 Cervical Cancer Screening Pa p with HPV Testing (Age 30 to 64) Every 5 Years 07/25/2017 Cervical Cancer Screening with HPV 07/25/2017 COVID-19 Vaccine (2023-2 5 season) 2023 HPV Vaccines Aged Out No longer eligi ble based on patient's age to complete this topic Meningococcal B Vaccine Aged Out No l onger eligible based on patient's age to complete this topic Meningococcal Vaccine Aged Out No imtiaz tyler eligible based on patient's age to complete this topic Pneumococcal Vaccine: Pediat rics (0 to 5 Years) and At-Risk Patients (6 to 49 Years) Aged Out No longer eligible b ased on patient's age to complete this topic RSV Immunizations Under 20 Months Aged Out No longer eligible based on patient's age to complete [place] [id number] R Care Teams Leather Repairer Relationship Specialty Start Date End Date New Referring, Provider PCP - General UNKNOWN PHYSICIAN SPECIALTY 04/10/18
--- OUTSIDE RECORDS SUMMARY | 2024-08-01 10:13 | XMS_ITS | Encounter Summary ---
Author Organization [facility] Address [address] [place] [address] Care Team Providers Care Servicing Rep Name Role Phone Marita Pierre MD Primary Care Provider [phone] Reason for Visit * Reason Comments Work-related Injury Erroneous encounter-disregard A user err or has taken place: encounter opened in error, closed for administrative reasons Encounter Details Date Type Department Care Team (Late Contact Info) Description 01/05/2024 Work Comp [facility] Orthopedic Surgery at the [facility] [address] [place] [address] Vilma Li ERRONEOUS ENCOUNTER--DISREGARD (Primary Dx) Social History Tobacco Use Types Packs/Day Years Used Date Smoking Tobacco: Never Smokeless Tobacco: Never Alcohol Use Standard Drinks/Week Comments Not Currently 0 (1 standard drink = 0.6 oz pur e alcohol) Socially Comments No Sex and Gender Information Value Date Recorded Sex Assigned at Not on file Legal Sex Female 11:17 AM [place] Gender Identity Not on file Sexual Orientation Not on file documented as of this encounter Plan of Treatment Upcoming Encounters Date Type Department Care Team (Late Contact Info) Description 08/08/2024 11:15 AM CDT Work Comp [facility] Orthopedic Surgery at the [facility] [address] [place] [address] [place] [address] [address] [address] [facility] [address] [place] [address] documented as of this encounter Visit Diagnoses Diagnosis ERRONEOUS ENCOUNTER--DISREGARD- Primary documented in this encounter Additional Health Concerns Infection Onset Date Last Indicated Resolved Time R/O Respiratory 03/16/2024 03/16/2024 03/16/2024 4 :02 AM [place] Assessment Noted Time PHQ-9 Depression Total Score: 2 03/30/20 18 8:00 AM [place] documented as of this encounter Care Teams Servicing Rep Relationship Specialty Start Date End Date Marita Pierre MD [address] [place] [address] [place] [address] PCP - General Internal Medicine 09/21/23 documented as of this encounter
--- OUTSIDE RECORDS SUMMARY | 2024-08-01 10:13 | XMS_ITS | Encounter Summary ---
Author Organization [facility] [place] Address [address] [place] [address] Phone Care Team Providers Care Can Doffer Name Role Phone No, Physician Primary Care Provider [phone] Encounter Details Date Type Department Care Team (Latest Contact Info) Description 01/22/2020 Orders Only [facility] Scanning, Provider Social History Tobacco Use Types Packs/Day Years Used Date Smoking Tobacco: Never Smokeless Tobacco: Never Alcohol Use Standard Drinks/Week Comments Yes 2 (1 standard drink = 0.6 oz pur e alcohol) Comments No Sex and Gender Information Value Date Recorded Sex Assigned at Not on file Legal Sex Female 10:36 AM SURVEY RESEARCH ASSOCIATE Gender Identity Not on file Sexual Orientation Not on file documented as of this encounter Plan of Treatment Not on file documented as of this encounter Procedures Procedure Name Priority Date/Time Associated Diagnosis Comments SCAN - LABS 01/22/2020 documented in this encounter Results * SCAN - LABS (01/22/2020) us Provider Scanning Final Result documented in this encounter Visit Diagnoses Not on filedocumented in this encounter Care Teams Can Doffer Relationship Specialty Start Date End Date No, Physician PCP - General 09/29/17 documented as of this encounter
--- OUTSIDE RECORDS SUMMARY | 2024-08-01 10:13 | XMS_ITS | Referral Summary ---
Author Organization [facility] Address [address] [place] [address] Care Team Providers Care Pharmacy Picking Tech Name Role Phone No, Physician Primary Care Provider [phone] Allergies Active Allergy Reactions Criticality Noted Date [...] 06/01/19 19 Active blood-glucose meter,continuous (DEXCOM G6 TIE SAWYER) 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 Overview (10/12/2018): Added automatically from request for surgery [id number] Family history of breast cancer 10/12/2018 Overview (10/12/2018): Added automatically from request for surgery [id number] Monoallelic mutation of CHEK2 gene in female pat ient 05/18/2018 Overview (05/18/2018): Added automatically from request for surgery [id number] Insulin pump titration 03/29/2018 Acquired absence of breast and absent nipple, bi lateral 10/25/2017 Genetic predisposition to breast cancer 10/13/19 18 Type 1 diabetes mellitus with hyperglycemia 09/17 Assessment & Plan (04/29/2022 4:53 PM [employer]MATURE W[employer]ER [employer]OM[employer]IVE): -Currently using Omnipod 5 insulin pump and [...] date Assessment & Plan (04/27/2018 3:14 PM [employer]URE [employer]): Diabetes is unchanged. A1c was 9.0% in [...] Free, Antibiotic Free, Intramuscular 02/04/2023 Tdap 02/04/2023 Social History Tobacco Use Types Packs/Day Years [...] on file Legal Sex Female 10:36 AM [employer] Gender Identity Not on file Sexual Orientation [...] 12/27/2023 1:37 PM CDT Plan of Treatment Not on file Medical Devices Implanted Type Area Group Home Supervisor Device Identifier Shelf Expiration Date Model / Serial / Lot [employer] Ssx-800 Natrelle Inspira Smooth Xfull Profile Implant 800cc Breast - [id number] - [id number] Implanted:Qty: 1 on 11/11/2018 by Alysha Chavez MD at [facility] Breast Right: Breast [employer] 06/21/2023 SSX-800 / [id number] / [id number] [employer] [id number] Alloderm [id number] Allograft Regenerative Freeze Dry Thick Matrix - [id number] - [id number] Implanted:Qty: 1 on 09/29/2017 by Alysha Chavez MD at [facility] Mesh Right: Breast [employer] 08/17/2019 [id number] / [id number] / [id number] [employer] Natrelle Biocell Magna-Site [id number] Style 133mx Textured Tab - [id number] - [id number] Implanted:Qty: 1 on 09/29/2017 by Alysha Chavez MD at [facility] Other - see comments Right: Breast [employer] 03/31/2021 133MX-14- T / [id number] / [employer] Natrelle Biocell Magna-Site [id number] Style 133mx Textured Tab - [id number] - [id number] Implanted:Qty: 1 on 09/29/2017 by Alysha Chavez MD at [facility] Other - see comments Left: Breast [employer] 05/29/2021 133MX-14- T / [id number] / [employer] [id number] Alloderm 99k88mt Allograft Regenerative Freeze Dry Thick Matrix - [id number] - [id number] Implanted:Qty: 1 on 09/29/2017 by Alysha Chavez MD at [facility] Left: Breast [employer] 08/17/2019 [id number] / [id number] / [id number] [employer] Ssx-800 Natrelle Inspira Smooth Xfull Profile Implant 800cc Breast - [id number] - [id number] Implanted:Qty: 1 on 06/17/2018 by Alysha Chavez MD at [facility] [employer] 07/04/2022 SSX-800 / [id number] / [employer] Ssx-800 Natrelle Inspira Smooth Xfull Profile Implant 800cc Breast - [id number] - [id number] Implanted:Qty: 1 on 06/17/2018 by Alysha Chavez MD at [facility] Left: Breast [employer] 06/29/2022 SSX-800 / [id number] / Explanted Type Area Group Home Supervisor Device Identifier Shelf Expiration Date Model / Serial / Lot [employer] 133mx-11 Natrelle; Biocell; Magna-Site W11 Cm X H10 Cm Style 133mx-T; Text - [id number] Explanted:Qty: 1 on 06/17/2018 at [facility] [employer] 133MX-11 / / [id number] [employer] 133mx-11 Natrelle; Biocell; Magna-Site W11 Cm X H10 Cm Style 133mx-T; Text - [id number] - [id number] Explanted:Qty: 1 on 06/17/2018 by Alysha Chavez MD at [facility] Right: Breast [employer] 07/04/2022 133MX-11 / [id number] / Procedures Procedure Name Priority Date/Time Associated [...] Most Recently Relevant to Health Maintenance Insurance [facility] [employer] GENERIC [employer] Advance Directives For more information, please contact: [phone] * Full Code (Latest Code Status on File) Date Activated Date Inactivated Comments 09/29/2017 11:38 AM 09/30/2017 1:36 PM Care Teams Pharmacy Picking Tech Relationship Specialty Start Date End Date No, Physician PCP - General 09/29/17
== END 2024-08-01 09:37 | disposition home or self-care (01) ==
PROVIDERS: Visit Provider Surgery
DX: R59.0 Localized enlarged lymph nodes (principal); Z98.82 Breast implant status; Z15.01 Genetic susceptibility to malignant neoplasm of breast; Z15.89 Genetic susceptibility to other disease; Z90.13 Acquired absence of bilateral breasts and nipples; Z80.3 Family history of malignant neoplasm of breast
CPT/HCPCS: 77049; A9579; C8908